=== PATIENT | female | born 1990 | race Caucasian/White ===

== ENCOUNTER → 2016-12-24 | Outpatient (CLI) | payer OTHER | END | disposition home or self-care (01) | LOC: LABWHC1 14:35 | PROVIDERS: ATTEND Obstetrics & Gynecology | DX: N92.6 Irregular menstruation, unspecified (principal) | CPT/HCPCS: 36415; 84702 ==

== ENCOUNTER → 2017-08-21 | Outpatient (CLI) | payer OTHER ==
[2017-08-21 08:24] LABS: HCT 41.9 % (34.0-46.0); HGB 13.9 gm/dL (11.4-16.0); MCH 29.2 pg (25.0-35.0); MCHC 33.2 g/dL (31.0-37.0); MCV 87.9 fL (80.0-100.0); Mean Platelet Volume 7.4; Platelet Count 199 k/uL (150-450); RBC 4.77 m/uL (3.80-5.40); RDW 12.6 % (11.5-15.5); WBC 5.8 k/uL (3.8-10.6)
[2017-08-21 11:57] LABS: ALT 16 U/L (9-52); AST 19 U/L (14-36); Albumin 3.9 g/dL (3.5-5.0); Alkaline Phosphatase 69 U/L (38-126); Anion Gap 8 mmol/L; Blood Urea Nitrogen 11 mg/dL (7-17); Calcium 9.2 mg/dL (8.4-10.2); Carbon Dioxide 28 mmol/L (22-30); Chloride 105 mmol/L (98-107); Glucose 104 mg/dL (74-99); Potassium 4.2 mmol/L (3.5-5.1); Sodium 141 mmol/L (137-145); Total Bilirubin 0.6 mg/dL (0.2-1.3)
[2017-08-21 12:13] LABS: T4, Free (Free Thyroxine) 0.83 ng/dL (0.78-2.19)
[2017-08-21 16:48] LABS: Thyroid Peroxidase Antibodies 38.6 U/mL (0.0-60.0)
[2017-08-21 18:33] LABS: ACTH 18.4 pg/mL (0.00-45.99)
== END | disposition home or self-care (01) ==
LOC: LABWHC1 08:06
PROVIDERS: ATTEND Internal Medicine Endocrinology, Diabetes & Metabolism
DX: R53.83 Other fatigue (principal)
CPT/HCPCS: 36415; 80053; 82024; 82533; 82607; 84146; 84439; 84443; 84481; 85027; 86376